=== PATIENT | male | born 1965 | race Caucasian/White ===

== ENCOUNTER 2019-11-09 19:04 | Emergency (ER) | payer OTHER ==
[~2019-11-09] VITALS: Ht 177.8 cm; Wt 104.3 kg
[2019-11-09 19:05] VITALS: BP_SYST 107
[2019-11-09] MEDS ORDERED: MORPHINE 4 MG/ML INJ. SYRINGE IVP ONE (19:15)
[2019-11-09] MEDS ORDERED: ONDANSETRON HCL 4 MG/2 ML VIAL IVP ONE (19:15)
[2019-11-09] MEDS ORDERED: KETAMINE 30 MG/3 ML SYRINGE IVP ONE (19:45)
[2019-11-09] MEDS ORDERED: PROPOFOL 200MG/ 20ML VIAL (DIPRIVAN) IV ONE (19:45)
[2019-11-09 22:29] VITALS: BP_SYST 158
== END 2019-11-09 22:29 | disposition home or self-care (01) ==
LOC: SED 19:04
DX: S43.015A Anterior dislocation of left humerus, initial encounter (principal); I48.91 Unspecified atrial fibrillation; W18.39XA Other fall on same level, initial encounter; Y93.89 Activity, other specified; Y92.89 Other specified places as the place of occurrence of the external cause; Y99.8 Other external cause status
CPT/HCPCS: 23650; 73020; 73030; 96374; 96375; 99284; J2270; J2405; J2704